=== PATIENT | male | born 1990 | race Caucasian/White ===

== ENCOUNTER 2016-10-15 09:24 | Emergency (ER) | payer BC ==
[~2016-10-15] VITALS: Ht 180.3 cm; Wt 86.2 kg
[2016-10-15] MEDS ORDERED: NKM (09:35)
[2016-10-15 09:41] VITALS: BP 115/68
[2016-10-15] MEDS ORDERED: Dicyclomine HCl 10mg/5ml oral soln ORAL ONE (09:45)
[2016-10-15] MEDS ORDERED: Mylanta II UD 30ml ORAL ONE (09:45)
[2016-10-15] MEDS ORDERED: Lidocaine 2% Visc 15ml soln ORAL ONE (09:45)
[2016-10-15] MEDS ORDERED: Famotidine 20 MG/ 2ML VIAL IVP ONE (09:45)
[2016-10-15 10:10] LABS: BASOPHILS % (AUTO) 1.2 % (0.0-2.0); EOSINOPHILS % (AUTO) 4.2 % (0.0-3.0); LYMPHOCYTES % (AUTO) 22.5 % (20.0-45.0); MEAN CORPUSCULAR HGB CONC 34.2 G/DL (32.0-36.0); MEAN CORPUSCULAR VOLUME 82 FL (80-99); MEAN PLATELET VOLUME 8.6 FL (6.5-10.1); MONOCYTES % (AUTO) 14.4 % (1.0-10.0); NEUTROPHILS % (AUTO) 57.8 % (45.0-75.0); PLATELET COUNT 173 K/UL (150-450); RED BLOOD COUNT 5.11 M/UL (4.70-6.10); RED CELL DISTRIBUTION WIDTH 11.3 % (11.6-14.8); WHITE BLOOD COUNT 5.2 K/UL (4.8-10.8)
[2016-10-15 10:30] LABS: ALANINE AMINOTRANSFERASE 22 U/L (3-41); ALBUMIN/GLOBULIN RATIO 1.4 (1.0-2.7); ANION GAP 13 (5-15); ASPARTATE AMINO TRANSFERASE 21 U/L (5-40); CALCIUM 9.2 mg/dL (8.6-10.2); CARBON DIOXIDE 27 mEQ/L (20-30); CHLORIDE 100 mEQ/L (98-107); GLOMERULAR FILTRATION RATE > 60 mL/min (>60); HEMOLYSIS 5; LIPASE 15 U/L (< 60); SODIUM 140 mEQ/L (135-145)
[2016-10-15] MEDS ORDERED: BENTYL10 MG ORAL (11:08)
[2016-10-15] MEDS ORDERED: RANITIDINE HCL150 MG ORAL (11:08)
[2016-10-15 11:18] VITALS: BP 120/63
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
--- NOTE | 2016-10-17 08:07 | Diagnostic Imaging Report ---
Indication: Benedict pain Technique: Supine views of the abdomen Comparison: None Findings: Small bowel loops of the upper abdomen are dilated. Gas and stool are noted in the colon. The osseous structures demonstrate no acute abnormality. Impression: Dilated small bowel loops of the upper abdomen. Although findings could represent ileus, an obstructive process not excluded. Further evaluation recommended as indicated.
== END 2016-10-15 11:20 | disposition home or self-care (01) ==
LOC: EMR 09:57
DX: K29.00 Acute gastritis without bleeding (principal)
CPT/HCPCS: 36415; 74000; 80053; 83690; 85025; 96360; 96374; 96375; 99284; J2405; J7040; S0028